=== PATIENT | female | born 1960 | race Caucasian/White ===

== ENCOUNTER → 2021-12-11 | Outpatient (CLI) | payer BC ==
[~2021-12-11] VITALS: Ht 167.6 cm; Wt 90.9 kg
[~2021-12-11] MED LIST: LIDOCAINE 1% INJ 10 ML VIAL INJ ONE
--- NOTE | 2021-12-11 12:23 | Diagnostic Imaging Report ---
INDICATION: Right breast calcifications. Patient presents for stereotactic biopsy. DETAILS OF THE PROCEDURE: The patient was brought to the mammographic suite and placed in a chair in a sitting upright position. The right breast was positioned lateral medial. The cluster of microcalcifications in the upper posterior right breast were stereotactically targeted. The skin of the lateral right breast was prepped and draped in the usual sterile fashion. A small amount of 1% lidocaine was utilized for local anesthesia. An 8 gauge vacuum-assisted needle was advanced from a lateral medial projection and placed per stereotactic coordinates. Four core biopsies were obtained. Specimen radiograph does show calcifications within samples labeled #2, #3, and #4. These are most numerous in sample #4. A marker clip was then deployed. The needle was removed and hemostasis was obtained. The patient tolerated the procedure well. A post procedure 2D CC mammogram does show a clip in the upper right breast adjacent to the calcifications. All images were viewed on a dedicated workstation. IMPRESSION: Successful stereotactic biopsy of right breast calcifications. Pathology results are currently pending. Dictated by: Dictated on workstation # [id number]
== END ==
LOC: RAD 08:45
PROVIDERS: ATTEND Surgery
DX: R92.0 Mammographic microcalcification found on diagnostic imaging of breast (principal)
CPT/HCPCS: 19081; A4648